=== PATIENT | female | born 1950 | race Caucasian/White ===

== ENCOUNTER 2017-07-26 14:20 | Emergency (ER) | payer OTHER ==
[~2017-07-26] VITALS: Ht 167.6 cm; Wt 103.0 kg
[~2017-07-26 14:20] MED LIST: AMLO-110 PO; ATEN50TA8 PO; CHOL1CAP57 PO; CLON0.3T PO; CLON0.3T3 PO; CRS10 PO; DEXT1TAB50 PO; FLNIN NAE; LISI40TA PO; MECL1TAB42 PO; MULT-190 PO
[2017-07-26 14:29] VITALS: TEMP 36.7; Ht 167.6 cm; Wt 103.0 kg
[2017-07-26 15:29] LABS: BASO % 0.6 %; BASO ABS # 0.07 K/uL (0-0.2); COMPLETE YES; EOS % 1.6 %; HEMATOCRIT 43.4 % (37-47); IG% 0.6 %; LYMPH % 23.9 %; LYMPH ABS # 2.78 K/uL (1.2-3.4); MEAN CELL VOLUME 86.1 fL (80-100); MEAN CORPUSCULAR HEMOGLOBIN 27.6 pg (25-34); MONO % 10.6 %; NEUT % 62.7 %; PLATELET COUNT 230 K/uL (130-400); RED BLOOD COUNT 5.04 M/uL (4.2-5.4); WHITE BLOOD COUNT 11.65 K/uL (4.8-10.8)
--- NOTE | 2017-07-26 15:29 | EMERGENCY ROOM VISIT NOTE ---
History First contact with patient: 15:02 Chief Complaint: CARDIAC ASSESSMENT Stated Complaint: 2X FELT STRANGE,WEAK,CLAMMY- HEARTRATE 49 Nursing Triage Summary: patient went to work. pt c/o dizziness. "It felt like a wave over my body." the eye doctor where I work checked my heart rate and it was down to 45. pt states episode lasted approximately 1 minute pt denies SOB, chest pain. History of Present Illness The patient is a 66 year old female who presents to the Emergency Room with complaints of dizziness and clamminess which occurred earlier today. 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 She did not lose consciousness and denied any SOB or chest pain/ discomfort. 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 The first time the patient's pulse was measured it was 140 and then on repeat it was 45. There was thought that maybe the jemma was not working as she did start to feel better. She continued to work and approx an hour and a half after the first episode the patient had a similar second episode and the jemma had noted a pulse of 45 once again. She called her boilermaker assembly and erection who had recommended either follow up with them next week or ED and patient preferred follow up in the ED. She notes she was also asked not to take the Atenolol at lunch time. She did take her normal dose of clonidine, lisinopril and amlodipine this morning. The patient had no history of AL/ CVA/ TIA. She also notes she did have a stress test in the past but this was "years ago". She has never had an episode like this in the past and she has no history of arrhythmias. She has significant cardiovascular history in her father's family but not in primary relatives. She has a history of borderline DM. Non smoker. Review of Systems a 10 point review of systems was completed and was negative aside from above Past Medical/Surgical History Medical Problems: (1) Hypertension (2) Kidney stone (3) Right Knee DJD Surgical Problems: (1) H/O lithotripsy (2) H/O: section Family History FH: cancer FH: diabetes mellitus FH: hypertension FHx: heart disease Social History Smoking Status: Never Smoker Alcohol Use: none Drug Use: none Marital Status: Housing Status: lives with family Occupation Status: employed Current/Historical Medications Scheduled Amlodipine (Norvasc), 5 MG PO QAM Atenolol (Tenormin), 50 MG PO BID Cholecalciferol (Vitamin D3), 1,000 UNITS PO QAM Ciprofloxacin Tab (Cipro), 1 TAB PO BID Clonidine Hcl (Catapres), 0.3 MG PO BID Dextromethorphan-Guaifenesin (Mucinex Dm Maximum Streng), 1 TAB PO QAM Fluticasone Propionate (Nasal) (Flonase Allergy Relief), 2 SPRAYS SAGE QAM Levocetirizine Dihydrochloride (Xyzal), 1 TAB PO HS Lisinopril (Zestril), 40 MG PO HS Methylprednisolone (Medrol Dosepak), 1 PKT PO UD Ocuvite Preservision (Ocuvite Preservision), 1 TAB PO QAM Rosuvastatin Calcium (Crestor), 5 MG PO HS Scheduled PRN Carboxymethylcellulose Sodium (Refresh), 1 DROP OPB for DRYNESS Meclizine Hcl (Meclizine Hcl), 25 MG PO TID PRN for PRN Physical Exam Vital Signs Date Time Temp Pulse Resp B/P (MAP) Pulse Ox O2 Delivery O2 Flow Rate FiO2 07/26/17 17:27 80 18 156/73 98 07/26/17 15:29 53 07/26/17 15:25 70 18 122/68 95 Room Air 07/26/17 14:37 96 Room Air 07/26/17 14:29 36.7 63 20 135/73 96 Room Air Physical Exam General: ambulatory, not in acute distress Skin: no rashes noted, no suspicious lesions, no areas of inflammations/ lacerations/ erythema noted, stasis dermatitis is noted on bilat LE CVS: S1/ S2 noted, RRR, no rubs/ murmurs noted, no cyanosis RVS: Clear throughout bilaterally, not in acute respiratory distress, no wheezing/ rales/ crackles noted ENT: TM bilat clear, no erythema/ injection/ ulcerations noted in the pharynx, no lymphadenopathy Neck: Thyroid is not palpable, inspection WNL, full ROM of neck, no bruits noted ABD: BSx4, no pain/ tenderness on palpation, no organomegaly, negative murphys, psoas, Rovsing, CVA tenderness MSK: inspection of all limbs WNL, motor and sensation intact in all limbs, no swelling/ pain on palpation of joints NVS: PERRL, EOMI, sensation intact in all extremities, DTR +2 Lymph: No lymphadenopathy palpable Medical Decision & Procedures ER Provider Diagnostic Interpretation: [~ rep ct add3]] CHEST ONE VIEW PORTABLE HISTORY: Atypical chest pain COMPARISON: Chest 07/14/2017. FINDINGS: The lungs are clear. Cardiac silhouette is normal in size. No pleural effusions. No pneumothorax. IMPRESSION: No acute process. Laboratory Results 07/26/17 15:10 Red Blood Count 5.04, Mean Corpuscular Volume 86.1, Mean Corpuscular Hemoglobin 27.6, Mean Corpuscular Hemoglobin Concent 32.0, Mean Platelet Volume 11.0, Neutrophils (%) (Auto) 62.7, Lymphocytes (%) (Auto) 23.9, Monocytes (%) (Auto) 10.6, Eosinophils (%) (Auto) 1.6, Basophils (%) (Auto) 0.6, Neutrophils # (Auto ) 7.31, Lymphocytes # (Auto) 2.78, Monocytes # (Auto) 1.23, Eosinophils # (Auto ) 0.19, Basophils # (Auto) 0.07 07/26/17 15:10 Test 07/26/17 15:10 07/26/17 15:30 White Blood Count 11.65 K/uL (4.8-10.8) Red Blood Count 5.04 M/uL (4.2-5.4) Hemoglobin 13.9 g/dL (12.0-16.0) Hematocrit 43.4 % (37-47) Mean Corpuscular Volume 86.1 fL (80-100) Mean Corpuscular Hemoglobin 27.6 pg (25-34) Mean Corpuscular Hemoglobin Concent 32.0 g/dl (32-36) Platelet Count 230 K/uL (130-400) Mean Platelet Volume 11.0 fL (7.4-10.4) Neutrophils (%) (Auto) 62.7 % Lymphocytes (%) (Auto) 23.9 % Monocytes (%) (Auto) 10.6 % Eosinophils (%) (Auto) 1.6 % Basophils (%) (Auto) 0.6 % Neutrophils # (Auto) 7.31 K/uL (1.4-6.5) Lymphocytes # (Auto) 2.78 K/uL (1.2-3.4) Monocytes # (Auto) 1.23 K/uL (0.11-0.59) Eosinophils # (Auto) 0.19 K/uL (0-0.5) Basophils # (Auto) 0.07 K/uL (0-0.2) RDW Standard Deviation 44.5 fL (36.4-46.3) RDW Coefficient of Variation 14.3 % (11.5-14.5) Immature Granulocyte % (Auto) 0.6 % Immature Granulocyte # (Auto) 0.07 K/uL (0.00-0.02) Prothrombin Time 10.5 SECONDS (9.0-12.0) Prothromb Time International Ratio 1.0 (0.9-1.1) Activated Partial Thromboplast Time 22.9 SECONDS (21.0-31.0) Partial Thromboplastin Ratio 0.9 Anion Gap 7.0 mmol/L (3-11) Est Creatinine Clear Calc Drug Dose 82.0 ml/min Estimated GFR () 85.1 Estimated GFR (Non- 73.4 BUN/Creatinine Ratio 29.1 (10-20) Calcium Level 8.7 mg/dl (8.5-10.1) Magnesium Level 2.3 mg/dl (1.8-2.4) Total Bilirubin 0.5 mg/dl (0.2-1) Aspartate Amino Transf (AST/SGOT) 8 U/L (15-37) Alanine Aminotransferase (ALT/SGPT) 18 U/L (12-78) Alkaline Phosphatase 85 U/L (45-117) Troponin I < 0.015 ng/ml (0-0.045) Total Protein 7.0 gm/dl (6.4-8.2) Albumin 3.7 gm/dl (3.4-5.0) Globulin 3.3 gm/dl (2.5-4.0) Albumin/Globulin Ratio 1.1 (0.9-2) Lipase 172 U/L (73-393) Thyroid Stimulating Hormone (TSH) 2.930 uIu/ml (0.300-4.500) Urine Color YELLOW Urine Appearance CLEAR (CLEAR) Urine pH 5.0 (4.5-7.5) Urine Specific [place] 1.019 (1.000-1.030) Urine Protein NEG (NEG) Urine Glucose (UA) NEG (NEG) Urine Ketones NEG (NEG) Urine Occult Blood NEG (NEG) Urine Nitrite NEG (NEG) Urine Bilirubin NEG (NEG) Urine Urobilinogen NEG (NEG) Urine Leukocyte Esterase TRACE (NEG) Urine WBC (Auto) 5-10 /hpf (0-5) Urine RBC (Auto) 0-4 /hpf (0-4) Urine Hyaline Casts (Auto) 10-30 /lpf (0-5) Urine Epithelial Cells (Auto) 20-30 /lpf (0-5) Urine Bacteria (Auto) NEG (NEG) Urine Renal Epithelial Cells 0-5 /lpf (0-5) Urine Pathogenic Casts 1-5 GRANULAR CASTS /lpf (0) Medications Administered Medications (Trade) Dose Ordered Sig/Nargis Route Start Time Stop Time Status Last Admin Dose Admin Sodium Chloride 1,000 ml @ 999 mls/hr Q1H1M ONCE IV 07/26/17 16:00 07/26/17 17:00 DC 07/26/17 16:00 999 MLS/HR Ciprofloxacin (Cipro Tab) 500 mg STK-MED ONCE .ROUTE 07/26/17 17:43 07/26/17 17:44 DC 07/26/17 17:43 500 MG ECG Indication: diaphoresis, syncope Rate (beats per minute): 64 Rhythm: sinus bradycardia Findings: no acute ischemic change, no ectopy Change: no significant change ED Course 1505 : the patient was assessed and evaluated by the resident, appropriate w/u was ordered 1530: NSS @ 999/h x 1 ordered 1645: Cipro 200 mg IV x1 1700: Discussed case with Dr Camarillo, plan for outpatient holter monitor and forward to her primary cardio to read 1715: Discussed discharge and patient was agreeable Medical Decision Differential diagnosis: Etiologies such as benign positional vertigo, dehydration, hypovolemia, anemia, tumor, infection, hypoglycemia, electrolyte abnormalities, cardiac sources, intracerebral event, toxicologic, neurologic, as well as others were entertained. This is a 66 yo f that presented to us after two episodes of presyncopal episodes that was associated with standing and not with any exertion. DDimer was deferred as the patient has no significant past medical history of DVT/PE, is not on HRT, is a non smoker and has a Well's criteria of zero. A CBC revealed a very mildly elevated WBC at approx 11 which is most likely associated with stress however there is a left shift which could be associated with infection developing. CMP was unremarkable except for an elevated glucose which as the patient noted her borderline DM it is expected. BUN was elevated at 24 which could be secondary to dehydration and considering the recent presyncope a bolus of NSS 1L was ordered. Patient was monitored on the ED and she did not have any additional episodes of presyncope or any significant tachy / martita episodes. As the patient had a normal troponin, no additional episodes, no significant past CVS history, was not associated with exertion, we will arrange a holter for the patient as well as close follow up with her PCP and boilermaker assembly and erection. Patient will follow up tomorrow for a holter monitor and [facility] group was made aware of this. As she had an elevated BUN as well as an abn UA with a left shift the patient may have a mild UTI. She did receive Cipro prior to d/c and plan for 5 day of abx therapy. Discussed close follow up with [facility] and PCP. Head Trauma GCS Score: 15 Blood Pressure Screening Patient's blood pressure: Elevated blood pressure Blood pressure disposition: Referred to PCP Impression Primary Impression: Pre-syncope Additional Impressions: Dehydration Sinus bradycardia by electrocardiogram Departure Information Dispostion Home / Self-Care Condition GOOD Prescriptions Ciprofloxacin Tab (Cipro) 250 Mg Tab 1 TAB PO BID for 5 Days, #10 TAB Prov: Celia Hardy MD 07/26/17 Referrals Valdez Anderson M.D. (PCP) Patient Instructions [facility] Problem Qualifiers
--- NOTE | 2017-07-26 15:30 | DIAGNOSTIC IMAGING REPORT ---
CHEST ONE VIEW PORTABLE HISTORY: Atypical chest pain COMPARISON: Chest 07/14/2017. FINDINGS: The lungs are clear. Cardiac silhouette is normal in size. No pleural effusions. No pneumothorax. IMPRESSION: No acute process. Electronically signed by: Luis Dutton M.D. 07/26/2017 3:28 PM Dictated Date/Time: 07/26/2017 3:27 PM
[2017-07-26 15:40] LABS: PARTIAL THROMBOPLASTIN RATIO 0.9; PROTHROMBIN TIME (PATIENT) 10.5 SECONDS (9.0-12.0)
[2017-07-26 15:55] LABS: ALT/SGPT 18 U/L (12-78); AST/SGOT 8 U/L (15-37); BLOOD UREA NITROGEN 24 mg/dl (7-18); BUN/CREATININE RATIO 29.1 (10-20); CALCIUM 8.7 mg/dl (8.5-10.1); CARBON DIOXIDE 30 mmol/L (21-32); CHLORIDE 103 mmol/L (98-107); CREATININE 0.84 mg/dl (0.60-1.20); GLUCOSE 136 mg/dl (70-99); POTASSIUM 3.6 mmol/L (3.5-5.1); SODIUM 140 mmol/L (136-145)
[2017-07-26] MEDS ORDERED: ROSU5TAB PO (15:55)
[2017-07-26] MEDS ORDERED: CARB1SOL OPB (15:55)
[2017-07-26] MEDS ORDERED: FLUT0.15 NAE (15:55)
[2017-07-26] MEDS ORDERED: METH4PAK PO (15:55)
[2017-07-26 15:56] LABS: URINE APPEARANCE CLEAR (CLEAR); URINE BILIRUBIN NEG (NEG); URINE COLOR YELLOW; URINE EPITHELIAL CELL AUTO 20-30 /lpf (0-5); URINE NITRITE NEG (NEG); URINE SPECIFIC GRAVITY 1.019 (1.000-1.030); UROBILINOGEN NEG (NEG); ZZUR CULT IF INDIC CLEAN CATCH NO
[2017-07-26 15:59] LABS: ALB/GLOB RATIO 1.1 (0.9-2); ALKALINE PHOSPHATASE 85 U/L (45-117)
[2017-07-26] MEDS ORDERED: SODIUM CHLORIDE 0.9% 1000ML 1,000 ML IV ONE (16:00)
--- NOTE | 2017-07-26 16:05 | EMERGENCY ROOM VISIT NOTE ---
ED Visit Note First contact with patient: 15:02 Resident Physician Supervision Note: I was present with Dr. Hardy during the history and exam. I discussed the case with the resident and agree with the findings and plan as documented in the note. Documented By: Akhil Duggan
[2017-07-26 16:09] LABS: MANUAL MICROSCOPIC REQUIRED? NO; REVIEW REQ? YES
[2017-07-26 16:27] LABS: URINE PATH CASTS 1-5 GRANULAR CASTS /lpf (0)
[2017-07-26 16:43] LABS: MAGNESIUM 2.3 mg/dl (1.8-2.4); THYROID STIMULATING HORMONE 2.93 uIu/ml (0.300-4.500)
[2017-07-26] MEDS ORDERED: CIPROFLOXACIN / D5W 200 MG in PREMIXED IN D5W 100 ML IV SCH (17:15)
[2017-07-26] MEDS ORDERED: CIPR1TAB11 PO (17:21)
[2017-07-26 17:27] VITALS: BP 156/73; PULSE 80; O2SAT 98
[2017-07-26] MEDS ORDERED: CIPROFLOXACIN 500 MG TAB ONE (17:43)
[2017-07-26] MEDS ORDERED: LEVO-371 PO (17:54)
== END 2017-07-26 17:27 | disposition home or self-care (01) ==
LOC: C.EDB 14:22 → C.EDA 17:27
DX: R55 Syncope and collapse (principal); E86.0 Dehydration; R00.1 Bradycardia, unspecified; I10 Essential (primary) hypertension; M17.11 Unilateral primary osteoarthritis, right knee; R73.03 Prediabetes; Z87.442 Personal history of urinary calculi; Z83.3 Family history of diabetes mellitus; Z82.49 Family history of ischemic heart disease and other diseases of the circulatory system